=== PATIENT | male | born 1965 | race Caucasian/White ===

== ENCOUNTER 2017-12-30 16:32 | Emergency (ER) | payer OTHER ==
[~2017-12-30] VITALS: Ht 167.6 cm; Wt 73.0 kg
[2017-12-30] MEDS ORDERED: LOSA100T15 PO (16:42)
[2017-12-30] MEDS ORDERED: ATOR10TA PO (16:42)
--- NOTE | 2017-12-30 16:45 | NUR ---
PATIENT PLACED ON MONITOR. PATIENT IS AWAKE ALERT ORIENTED X4. HAS CLEAR SPEECH AND NO NEURO DEFICITS NOTED.
[2017-12-30 16:55] LABS: BASOPHILS # (AUTO) 0.1 K/uL (0.0-8.0); BASOPHILS % (AUTO) 1.2 % (0.0-2.0); EOSINOPHILS # (AUTO) 0.1 K/uL (0.0-0.7); EOSINOPHILS % (AUTO) 0.9 % (0.0-7.0); HEMATOCRIT 44.2 % (36.7-47.1); HEMOGLOBIN 15.3 g/dL (12.5-16.3); LYMPHOCYTES # (AUTO) 1.6 K/uL (20.0-40.0); LYMPHOCYTES % (AUTO) 25.4 % (20.5-51.5); MEAN CORPUSCULAR HEMOGLOBIN 35.4 uug (23.8-33.4); MEAN CORPUSCULAR HGB CONC 35 g/dL (32.5-36.3); MEAN CORPUSCULAR VOLUME 102.6 fL (73.0-96.2); MONOCYTES # (AUTO) 0.3 K/uL (2.0-10.0); MONOCYTES % (AUTO) 5.1 % (0.0-11.0); NEUTROPHILS # (AUTO) 4.2 K/uL (1.8-8.9); NEUTROPHILS % (AUTO) 67.4 % (38.5-71.5); PLATELET COUNT (AUTO) 259 K/uL (152-348); RED BLOOD CELL COUNT(AUTO) 4.31 MIL/uL (4.06-5.63); WHITE BLOOD COUNT (AUTO) 6.2 K/uL (3.6-10.2)
[2017-12-30 17:04] LABS: POTASSIUM 3.8 mmol/L (3.5-5.1)
--- NOTE | 2017-12-30 17:32 | NUR ---
PATIENT IS AWAKE AND ALERT. HE IS AMBULATORY WITH STEADY GAIT. AWAITING TEST RESULTS.
--- NOTE | 2017-12-30 17:38 | NUR ---
DC and follow up instrutions given and explained to patient who states he understands all instructions. PATIENT STATE HE WILL FOLLOW UP WITH NEUROLOGIST TOYA.
== END 2017-12-30 17:42 | disposition home or self-care (01) ==
LOC: ER 16:35
DX: I10 Essential (primary) hypertension (principal); Z79.899 Other long term (current) drug therapy
CPT/HCPCS: 36415; 70030-TC; 70450; 71045; 85025; 93005; A4663

== ENCOUNTER 2018-04-17 23:27 | Emergency (ER) | payer OTHER ==
[~2018-04-17] VITALS: Ht 170.2 cm; Wt 71.7 kg
[~2018-04-17 23:27] MED LIST: ATOR10TA PO; LOSA100T15 PO
--- NOTE | 2018-04-17 23:28 | NUR ---
Dr. Antoine at bedside for MSE.
[2018-04-17] MEDS ORDERED: IV NORMAL SALINE 1000 ML BAG IV ONE (23:45)
[2018-04-18 00:07] LABS: BASOPHILS % (AUTO) 0.5 % (0.0-2.0); EOSINOPHILS # (AUTO) 0.1 K/uL (0.0-0.7); EOSINOPHILS % (AUTO) 0.9 % (0.0-7.0); HEMATOCRIT 40.3 % (36.7-47.1); HEMOGLOBIN 13.7 g/dL (12.5-16.3); LYMPHOCYTES # (AUTO) 2.3 K/uL (20.0-40.0); LYMPHOCYTES % (AUTO) 25.2 % (20.5-51.5); MEAN CORPUSCULAR HEMOGLOBIN 35.1 uug (23.8-33.4); MEAN CORPUSCULAR HGB CONC 34 g/dL (32.5-36.3); MEAN CORPUSCULAR VOLUME 103.2 fL (73.0-96.2); MONOCYTES # (AUTO) 0.5 K/uL (2.0-10.0); MONOCYTES % (AUTO) 5.7 % (0.0-11.0); NEUTROPHILS # (AUTO) 6.2 K/uL (1.8-8.9); NEUTROPHILS % (AUTO) 67.7 % (38.5-71.5); PLATELET COUNT (AUTO) 234 K/uL (152-348); RED BLOOD CELL COUNT(AUTO) 3.91 MIL/uL (4.06-5.63); WHITE BLOOD COUNT (AUTO) 9.2 K/uL (3.6-10.2)
[2018-04-18 00:24] LABS: BILIRUBIN,DIRECT 0.1 mg/dL (0.0-0.2); BILIRUBIN,TOTAL 0.2 mg/dL (0.2-1.0); CREATININE 1.2 mg/dL (0.6-1.3); POTASSIUM 3.4 mmol/L (3.5-5.1); TOTAL PROTEIN, SERUM 6.4 g/dL (6.4-8.2)
--- NOTE | 2018-04-18 00:42 | NUR ---
Patient discharged to home in stable conditon. Written and verbal after care instructions given. Patient verbalizes understanding of instructions. Patient ambulated out of ER with steady gait, no acute signs of distress, VSS, all belongings taken.
[2018-04-18 00:43] VITALS: BP 120/60
== END 2018-04-18 00:43 | disposition home or self-care (01) ==
LOC: ER 23:28
DX: R55 Syncope and collapse (principal); I10 Essential (primary) hypertension; E78.00 Pure hypercholesterolemia, unspecified; Z79.899 Other long term (current) drug therapy
CPT/HCPCS: 36415; 80048; 80076; 84484; 85025; 85730; 93005; 96360; 99285; A4663; G0480; J7030; 70030-TC

== ENCOUNTER 2021-08-02 19:51 | Emergency (ER) | payer OTHER ==
[~2021-08-02] VITALS: Ht 170.2 cm; Wt 72.6 kg
[~2021-08-02 19:51] MED LIST changes: -LOSA100T15 PO; +LOSA100T31 PO
[2021-08-02] MEDS ORDERED: ASPIRIN 81 MG TAB.CHEW PO ONE (20:15)
--- NOTE | 2021-08-02 20:19 | NUR ---
PATIENT WAS MSE BY DR BARRERA IN ROOM 02B.
[2021-08-02] MEDS ORDERED: ASPIRIN 81 MG TAB.CHEW ONE (20:30)
[2021-08-02 20:42] LABS: CREATININE 1.2 mg/dL (0.6-1.3); POTASSIUM 3.7 mmol/L (3.5-5.1)
[2021-08-02 20:46] LABS: HEMATOCRIT 42.1 % (36.7-47.1); MEAN CORPUSCULAR HEMOGLOBIN 35.7 uug (23.8-33.4); MEAN CORPUSCULAR VOLUME 103.9 fL (73.0-96.2); PLATELET COUNT (AUTO) 288 K/uL (152-348)
[2021-08-02 20:48] LABS: BILIRUBIN,DIRECT 0.1 mg/dL (0.0-0.2); BILIRUBIN,TOTAL 0.3 mg/dL (0.2-1.0); TOTAL PROTEIN, SERUM 7.2 g/dL (6.4-8.2)
--- NOTE | 2021-08-02 21:56 | NUR ---
Patient discharged to home in stable condition. Written and verbal after care instructions given. Patient verbalizes understanding of instructions. Stressed follow up or return to ER for worsening s/s.
[2021-08-02 21:57] VITALS: BP 107/71
== END 2021-08-02 21:58 | disposition home or self-care (01) ==
LOC: ER 19:51
DX: R55 Syncope and collapse (principal); I10 Essential (primary) hypertension; E78.00 Pure hypercholesterolemia, unspecified; Z79.899 Other long term (current) drug therapy
CPT/HCPCS: 36415; 70030-TC; 71045; 85025; 93005; A4663